=== PATIENT | female | born 1935 | race Caucasian/White ===

== ENCOUNTER 2017-10-28 07:04 | Inpatient (IN) ==
[2017-10-28] MEDS ORDERED: Dexamethasone Inj 20 MG/5 ML Vial IV.PUSH ONE (08:09)
[2017-10-28] MEDS ORDERED: Chlorhexidine Gluconate 2% 1 Pack (2 Cloths) TOPICAL SCH (08:15)
[2017-10-28] MEDS ORDERED: Chlorhexidine 4% Topical 120 APPLIC/120 ML Bottle TOPICAL SCH (08:15)
[2017-10-28] MEDS ORDERED: Sodium Chlor 0.9% Inj 40 ML, Bupivacaine Liposo PF 1.3% Inj 20 ML P-ARTICULR SCH ×2 (08:15)
[2017-10-28] MEDS ORDERED: Metoprolol Tartrate 25 MG Tablet PO SCH (08:15)
[2017-10-28] MEDS ORDERED: Vancomycin Inj 1,000 MG in Sodium Chlor 0.9% Inj 250 ML IV.SIG SCH (09:00)
[2017-10-28] MEDS ORDERED: ceFAZolin Inj 2,000 MG in Sodium Chlor 0.9% Inj 100 ML IV.SIG SCH ×4 (09:00)
[2017-10-28] MEDS ORDERED: Sodium Chlor 0.9% Inj 500 ML IV.SIG SCH (09:00)
[2017-10-28] MEDS ORDERED: fentaNYL Citrate Inj 250 MCG/5 ML Ampul ONE (09:08)
[2017-10-28] MEDS ORDERED: fentaNYL Citrate Inj 100 MCG/2 ML Ampul ONE (09:08)
[2017-10-28] MEDS ORDERED: HYDROmorphone PF Inj 2 MG/ML Vial ONE (09:08)
[2017-10-28] MEDS ORDERED: Famotidine PF Inj 20 MG/2 ML Vial ONE (09:09)
[2017-10-28] MEDS ORDERED: ceFAZolin 2 GM Premix Inj 2 GM/100 ML BAG IV.SIG ONE (09:22)
[2017-10-28] MEDS ORDERED: SODIUM CHLOR 0.9% IV.SIG SCH (10:30)
[2017-10-28] MEDS ORDERED: TRANEXAMIC ACID IV.SIG SCH (10:30)
[2017-10-28] MEDS ORDERED: Post-op Orders (for Pharmacy) OTHER STA (11:37)
[2017-10-28] MEDS ORDERED: Morphine Inj 4 MG/ML Vial IV.PUSH PRN (11:37)
[2017-10-28] MEDS ORDERED: Aluminum/Magnesium/Simethacone Susp 30 ML UDC PO PRN (11:37)
[2017-10-28] MEDS ORDERED: Bisacodyl 10 MG Supp RECTAL PRN (11:37)
[2017-10-28] MEDS ORDERED: Temazepam 15 MG Capsule PO PRN (11:37)
[2017-10-28] MEDS ORDERED: oxyCODONE/Acetaminophen 10/325 Tablet PO PRN (11:37)
--- NOTE | 2017-10-28 11:42 | P.OP ---
- Preoperative Diagnosis (1) Osteoarthritis of left hip - Postoperative Diagnosis (1) Osteoarthritis of left hip Date of procedure: 10/28/17 Procedure: Left total hip arthroplasty Anesthesia: GETA Surgeon: Regis Ford MD Adjunct Instructor: MCKENZIE Madden The surgical procedure was assisted by my Advanced Registered Nurse Practitioner. My INFANT NANNY presence was necessary throughout this case for the manipulation and positioning of the surgical extremity. My INFANT NANNY was assisting me throughout the duration of this procedure. The skill set of an Advance Registered Nurse Practitioner was medically necessary to complete this procedure. During the surgical case, the surgical instrument repair specialist was working at the back table and the Advance Registered Nurse Practitioner was directly assisting me. Operation and Findings: IMPLANT DESCRIPTION: 1. [place] Gription Cup, acetabular size 50. 2. [place] AltrX polyethylene, neutral. 4. [place] femoral stem size 12, no collar, standard offset. 5. Femoral head/neck metal, 32, +1. ESTIMATED BLOOD LOSS: 150 cc. JUSTIFICATION FOR PROCEDURE: The patient has end-stage osteoarthritis to the hip. There is an attached conservative measures pathway form in the chart that describes the nonoperative measures that were undertaken prior to consideration of surgical management. The patient understood the risks and benefits of surgical management. See my office notes for further details. PROCEDURE: The patient was brought back to the operative theatre. Adequate anesthesia was obtained. The patient received intravenous vancomycin and Ancef. The patient was carefully placed on the operative table. The lower extremity was prepped and draped in the usual sterile fashion. Fluoroscopic images were obtained. We made a standard anterior incision over the hip. We dissected through the TFL fascia, exposing the anterior capsule. Arthrotomy was performed in a T-shaped fashion. The capsule was tagged with a #2 FiberWire. End-stage arthritis was identified. Osteotomy was performed through the femoral neck exposing the acetabulum. Remnants of the labrum were resected and osteophytes were removed. We sequentially reamed the acetabulum. We trialed the hip and placed the final cup into position. This was done under fluoroscopic guidance to obtain the appropriate inclination and anteversion. A manhole cover was placed into the acetabular component. We then placed the final polyethylene into position and confirmed that it was well seated. Capsular attachments on the calcar and the inner aspect of the greater trochanter were resected. On the proximal aspect of the femur we used a rongeur , box osteotome, canal finder, sequential broaches and lateralizing rasp. We calcar planed the proximal femur. Then thoroughly irrigated the wound. We trialed the hip with the appropriate size stem. We placed the final stem in to position and trialed again. The hip was stable while it was externally rotated 70 degrees when the leg was lowered to the floor. The final head was applied, and final fluoroscopic images were obtained. The wound was thoroughly irrigated again. Interarticular injection of liposomal bupivacaine was given. The capsule was closed with #2 FiberWire and #1 Vicryl. The deep fascia was closed with a #2 Stratafix, followed by 2-0 Vicryl in the skin and Dermabond dressing. Postop plan is to weight-bear as tolerated. DVT prophylaxis will be performed with SCDs, CARLOZ koch, early mobilization, and Lovenox followed by aspirin.
[2017-10-28] MEDS: Sod Chloride 0.9% Inj 1,000 ML IV.CONT SCH (12:10)
[2017-10-28] MEDS ORDERED: SODIUM CHLOR 0.9% IV.SIG ONE (12:30)
[2017-10-28] MEDS ORDERED: TRANEXAMIC ACID IV.SIG ONE (12:30)
[2017-10-28] MEDS ORDERED: *morphine SULFATE 4 MG/ML PERIprocedure ONLY ONE ×2 (12:51→14:26)
[2017-10-28] MEDS ORDERED: Phenylephrine/NS 1000 MCG/10ML Syringe IV.PUSH ONE (13:01)
[2017-10-28] MEDS ORDERED: Glycopyrrolate Inj 1 MG/5 ML Syringe IV.PUSH ONE (13:01)
[2017-10-28] MEDS ORDERED: Neostigmine Inj 5 MG/5 ML Syringe IV.PUSH ONE (13:01)
[2017-10-28] MEDS ORDERED: Lidocaine PF 1% Inj 5 ML Syringe INFILTRATN ONE (13:01)
--- NOTE | 2017-10-28 13:08 | XR ---
EXAM DATE: 10/28/2017 12:56 PM EDT AGE/SEX: 82 years / Female INDICATIONS: Post-op left total hip arthroplasty. CLINICAL DATA: This is the patient's initial encounter. Patient reports that signs and symptoms have been present for 1 day and indicates a pain score of 0/10. MEDICAL/SURGICAL HISTORY: Carcinoma, breast. Carcinoma, colon. Appendectomy. Left breast lumpe ctomy. Bowel resection. Right total hip arthroplasty. COMPARISON: [facility], HIP RIGHT (AP&LAT 2/3VWS) WO AP PELVIS, 08/11/2012. . FINDINGS: Bilateral total hip arthroplasties are noted satisfactory in appearance. There is subcutaneous air ab out the left hip from surgery. The bone density is normal. No fractures are seen. CONCLUSION: Postoperative changes. Electronically signed by: Osiel Headley MD 10/28/2017 1:07 PM EDT
--- NOTE | 2017-10-28 14:49 | XR ---
EXAM DATE: 10/28/2017 2:12 PM EDT AGE/SEX: 82 years / Female INDICATIONS: Left total hip arthroplasty. CLINICAL DATA: This is the patient's initial encounter. Patient reports that signs and symptoms have been present for 1 day and indicates a pain score of Nonresponsive. MEDICAL/SURGICAL HISTORY: Non-responsive. Non-responsive. COMPARISON: No prior exams available for comparison. FINDINGS: 2 spot intraoperative fluoroscopic views of the left hip demonstrate a total hip arthroplasty in plac e. CONCLUSION: Postop left hip arthroplasty. Electronically signed by: Osiel Headley MD 10/28/2017 2:48 PM EDT
--- NOTE | 2017-10-28 15:23 | P.DCO ---
- Physical Therapy Physical Therapy: Gait training, Transfer training, bed to chair Hip: Total hip Left Lower Extremity Weight Bearing: Weight bearing as tolerated Left Lower Extremity Range of Motion: Active ROM - Nursing Nursing: Irma carrasco Dressing changes: Do not change dressing Additional instructions: First dressing change in the office - Certification Need for Home Health services: I have seen patient Indu Matamoros on 10/28/17. My clinical findings support the need for the requested home health care services because: Need for Home Health Services: Limited ability to care for self, High risk of falls Homebound Certification: I certify that my clinical findings support that this patient is homebound because: Homebound Certification: Post-op weakness, Unsteady gait/balance
[2017-10-28] MEDS: Temazepam 15 MG Capsule PO SCH (22:53)
[2017-10-28] MEDS: Senna/Docusate Sodium 8.6/50 MG Tablet PO SCH (22:53)
[2017-10-28] MEDS: Metoclopramide 10 MG Tablet PO SCH (22:53)
[2017-10-28] MEDS: Multivitamin/Minerals Therapeutic Tablet PO SCH (22:53)
[2017-10-29] MEDS: oxyCODONE/Acetaminophen 10/325 Tablet PO PRN ×2 (03:10→23:20)
[2017-10-29] MEDS: Sod Chloride 0.9% Inj 1,000 ML IV.CONT SCH ×2 (03:11→15:46)
[2017-10-29 06:05] LABS: Hematocrit 38.7 % (35.0-46.0); Hemoglobin 12.7 gm/dL (11.6-15.3)
--- NOTE | 2017-10-29 07:10 | P.PNOP ---
Subjective Interval history: The patient is resting comfortably in bed in no acute distress. The patient reports minimal pain to the left hip. Physical Exam Vital signs: Vital Signs 10/28/17 08:00 10/28/17 12:03 10/28/17 12:15 Temperature 98.5 F 97.6 F Pulse Rate 80 91 H 76 Respiratory Rate 16 12 19 Blood Pressure 143/82 H 100/53 L 101/58 L Pulse Oximetry 96 96 97 10/28/17 12:30 10/28/17 12:45 10/28/17 13:00 Temperature 97.4 F L Pulse Rate 74 71 74 Respiratory Rate 17 19 14 Blood Pressure 122/61 136/60 135/61 Pulse Oximetry 97 98 97 10/28/17 13:30 10/28/17 14:00 10/28/17 15:00 Temperature Pulse Rate 75 78 78 Respiratory Rate 14 14 15 Blood Pressure 139/58 L 117/59 L 117/56 L Pulse Oximetry 97 94 L 96 10/28/17 15:45 10/28/17 16:00 10/28/17 17:09 Temperature 97.6 F 97.3 F L Pulse Rate 79 84 Respiratory Rate 13 16 15 Blood Pressure 131/70 143/81 H Pulse Oximetry 97 96 10/28/17 20:00 10/29/17 00:00 10/29/17 04:00 Temperature 97.2 F L 97.8 F 97.5 F L Pulse Rate 93 H 89 85 Respiratory Rate 18 18 18 Blood Pressure 153/75 H 139/70 143/73 H Pulse Oximetry 93 L 95 93 L Intake & Output 10/28/17 10/29/17 10/29/17 18:59 06:59 18:59 Intake Total 4526.86 / 4526.86 1200 / 1200 Output Total 300 / 300 Balance 4226.86 / 4226.86 1200 / 1200 Weight 84.3 kg 84.3 kg Intake: IV 686.86 / 686.86 1200 / 1200 NS Inj 1,000 ML @ 80 mls/hr IV. 1000 / 1000 CONT .[id number] [facility] Rx#:[id number] Cyklokapron Inj 843 MG In NS 216.86 / 216.86 Inj 100 ML @ 200 mls/hr IV.SIG ONCE ONE Rx#:[id number] Vancomycin Inj 1,000 MG In NS 250 / 250 Inj 250 ML @ 250 mls/hr IV.SIG [facility] Rx#:[id number] Ancef Inj 1,000 MG In NS Inj 100 / 100 200 / 200 100 ML @ 200 mls/hr IV.SIG Q6H [facility] Rx#:[id number] Ancef Inj 2,000 MG In NS Inj 120 / 120 100 ML @ 240 mls/hr IV.SIG [employer] [facility] Rx#:[id number] Oral 240 / 240 Anesthesia Amount 3600 / 3600 Output: Estimated Blood Loss 300 / 300 Other: # Voids 2 Date of Last Bowel Movement 10/27/17 10/27/17 Weight On Admission 84.3 kg Narrative: The patient's dressing is clean, dry, and intact. EHL/TA/G are intact. 2+ pedal pulse. The patient's calf is soft and nontender. Sensation is intact to light touch distally. Mild ecchymosis to left hip. Results - Labs CBC & Chem 7: 10/29/17 04:32 Laboratory Results - last 24 hr 10/28/17 10/29/17 09:05 04:32 Hgb 12.7 Hct 38.7 Blood Type O Positive Antibody Screen Negative - Imaging Impressions Hip X-Ray 10/28/17 00:00 CONCLUSION: Postop left hip arthroplasty. Hip X-Ray 10/28/17 11:40 CONCLUSION: Postoperative changes. - Procedures Left total hip arthroplasty Assessment and Plan - Problem List (1) Status post total hip replacement, left Code(s): Z96.642 - Presence of left artificial hip joint Status: Acute (2) Osteoarthritis of left hip Code(s): M16.12 - Unilateral primary osteoarthritis, left hip Status: Acute - Assessment and Plan POD #1: Left total hip arthroplasty 1. Weightbearing as tolerated on left lower extremity. 2. Lovenox followed by aspirin for DVT prophylaxis. 3. Ice as needed for swelling. 4. Stable per ortho for discharge to home health today or Thursday. 5. The patient will follow up with Dr. Ford and/or MCKENZIE Moran as previously scheduled.
[2017-10-29] MEDS ORDERED: Dexamethasone Inj 20 MG/5 ML Vial IV.PUSH ONE (08:00)
[2017-10-29] MEDS: Metoclopramide 10 MG Tablet PO SCH ×2 (10:07→21:20)
[2017-10-29] MEDS: Senna/Docusate Sodium 8.6/50 MG Tablet PO SCH ×2 (10:07→21:20)
[2017-10-29] MEDS: Multivitamin/Minerals Therapeutic Tablet PO SCH ×2 (10:07→21:21)
[2017-10-29] MEDS: Pantoprazole Sodium 20 MG DR Tablet PO SCH (10:07)
[2017-10-29] MEDS: Enoxaparin Inj 40 MG/0.4 ML Syringe SQ SCH (11:21)
--- NOTE | 2017-10-29 13:41 | P.DIET ---
Nutritional Evaluation Type of nutrition evaluation: initial (Abril Screen) Assessment Assessment: Geriatric screen received on pt who had elective surgery w/ age >80. Pt is at 150% of his IBW. Not at high nutritional risk. Consult RD if needed.
[2017-10-29] MEDS: Temazepam 15 MG Capsule PO SCH (23:20)
[2017-10-30] MEDS: Sod Chloride 0.9% Inj 1,000 ML IV.CONT SCH (04:28)
[2017-10-30 06:36] LABS: Hematocrit 33.3 % (35.0-46.0)
[2017-10-30] MEDS: oxyCODONE/Acetaminophen 10/325 Tablet PO PRN ×2 (08:01→12:08)
[2017-10-30] MEDS: Metoclopramide 10 MG Tablet PO SCH (08:02)
[2017-10-30] MEDS: Pantoprazole Sodium 20 MG DR Tablet PO SCH (08:02)
[2017-10-30] MEDS: Multivitamin/Minerals Therapeutic Tablet PO SCH (08:02)
[2017-10-30] MEDS: Senna/Docusate Sodium 8.6/50 MG Tablet PO SCH (08:03)
--- NOTE | 2017-10-30 09:10 | P.PNOP ---
Subjective Interval history: ready to go home. pain controlled Physical Exam Vital signs: Vital Signs 10/29/17 11:52 10/29/17 16:00 10/29/17 20:00 Temperature 98.1 F 98.0 F 99.0 F Pulse Rate 78 76 79 Respiratory Rate 18 18 18 Blood Pressure 132/66 131/66 121/57 L Pulse Oximetry 92 L 94 L 93 L 10/30/17 00:00 10/30/17 04:00 10/30/17 08:00 Temperature 98.7 F 98.3 F 97.9 F Pulse Rate 82 80 73 Respiratory Rate 17 15 18 Blood Pressure 136/65 128/66 117/58 L Pulse Oximetry 92 L 93 L 95 Intake & Output 10/29/17 10/30/17 10/30/17 18:59 06:59 18:59 Intake Total 2480 / 2480 150 / 150 Output Total Balance 2480 / 2480 149 / 149 Intake: IV 1999 / 1999 NS Inj 1,000 ML @ 80 mls/hr IV. 1000 / 1000 CONT .[id number] [facility] Rx#:[id number] LR 1000 mL Inj 1,000 ML @ 30 1000 / 1000 mls/hr IV.SIG .Q24H [facility] Rx#: [id number] Oral 480 / 480 150 / 150 Output: Urine Other: # Voids 4 Date of Last Bowel Movement 10/28/17 10/28/17 Narrative: The patient's dressing is clean, dry, and intact. Small amount of stable bloody drainage on the dressings (dime size) EHL/TA/G are intact. 2+ pedal pulse. The patient's calf is soft and nontender. Sensation is intact to light touch distally. Mild ecchymosis to left hip. Results - Labs CBC & Chem 7: 10/30/17 05:40 Laboratory Results - last 24 hr 10/30/17 05:40 Hgb 11.0 L Hct 33.3 L - Procedures Left total hip arthroplasty Assessment and Plan - Problem List (1) Status post total hip replacement, left Code(s): Z96.642 - Presence of left artificial hip joint Status: Acute (2) Osteoarthritis of left hip Code(s): M16.12 - Unilateral primary osteoarthritis, left hip Status: Acute - Assessment and Plan POD #2: Left total hip arthroplasty 1. Weightbearing as tolerated on left lower extremity. 2. Lovenox followed by aspirin for DVT prophylaxis. (patient has rx for pain meds and blood thinners at home) 3. Ice as needed for swelling. 4. Stable per ortho for discharge to home health today. 5. The patient will follow up with Dr. Ford and/or MCKENZIE Moran as previously scheduled.
[2017-10-30] MEDS: Enoxaparin Inj 40 MG/0.4 ML Syringe SQ SCH (12:08)
--- NOTE | 2017-11-02 12:34 | P.DS ---
Date of admission: 10/28/17 07:04 Primary care physician: Leoncio Delgado MD Attending physician on discharge: Regis Ford Anticipated date of discharge: 10/30/17 Brief History from admission: The patient was admitted to the hospital for severe osteoarthritis of the left hip to have a left total hip arthroplasty. DS: Diagnosis - Discharge Diagnosis (1) Status post total hip replacement, left Status: Acute (2) Osteoarthritis of left hip Status: Acute DS: Summary Hospital Course: The patient was admitted to the hospital for severe osteoarthritis of the left hip to have a left total hip arthroplasty. The patient's surgery went well with no complication. The patient is on a [regular] diet. The patient's DVT prophylaxis includes use of [Lovenox followed by aspirin]. The patient is weightbearing as tolerated. The patient was discharged [home with home health] and will follow up in the office with Dr. Ford and/or MCKENZIE Moran as previously scheduled. - Time Spent with Patient Total time spent providing and/or coordinating discharge services: Greater than 30 minutes - Quality: VTE Deep Vein Thrombosis/Pulmonary Embolism Present on Admission: No Exam Narrative: See last progress note for physical exam. Results Procedures completed during hospitalization: Left total hip arthroplasty - Impressions ITS Impressions Hip X-Ray 10/28/17 11:40 CONCLUSION: Postoperative changes. Discharge Plan - Discharge Disposition Patient Disposition: W/Home Health Service - Discharge Condition Condition: Stable - Discharge Order Discharge Orders: Discharge Order (Routine); Ordered 10/28/17 Ordered By: David Barragan - Discharge Details Anticipated Discharge Date: 10/29/17 - Physicians Team Primary Care Provider: Leoncio Delgado Attending Provider: Regis Ford Other Providers: [facility],Agency - Rxs /Orders / Referrals /Forms Prescriptions: Continue oxybutynin chloride 5 mg Tablet 5 mg PO BID Prilosec OTC 1 tab PO DAILY Reglan 1 tab PO BID temazepam [Restoril] 15 mg Capsule 15 mg PO HS Discontinued Aleve 2 tab PO BID hydrocodone-acetaminophen [Chase] 5-325 mg Tablet 1 tab PO TID PRN (Reason: Pain) Ambulatory Orders / Order Sets / DME: Adjustable Commode 3-in-1 (1 each) (Routine) Location: Determined by Patient Ordered By: David Barragan Walker With Front Wheels (1 each) (Routine) Location: Determined by Patient Ordered By: David Barragan Referrals: Regis Ford MD [Physician] - See Instructions (F/U in the office with Dr. Ford or MCKENZIE Moran as previously scheduled.) Leoncio Delgado MD [Primary Care Provider] - See Instructions - Discharge Instructions Patient Printed Instructions: Constipation (DC), How to Choose and Use a Walker (GEN), CARLOZ Hose (DC), Total Hip Replacement (DC), Pain Management After Surgery (DC) Additional Instructions: PLEASE TAKE ALL MEDICATIONS DIRECTED BY YOUR DOCTOR. PLEASE FOLLOW UP WITH YOUR DOCTOR PREVIOUSLY SCHEDULED. IF YOU HAVE ANY SIGNS AND SYMPTOMS OF INFECTION, PLEASE CALL YOUR DOCTOR AND REPORT BACK TO [facility]. IT HAS BEEN OUR PLEASURE TO TAKE CARE OF YOU HERE ON 6N. WISHING YOU WELL ON YOUR RECOVERY. - Post Discharge Care Plan Care Plan Goals: Your Health Problems: Goals to Promote Your Health: * To prevent worsening of your condition * To maintain your health at the optimal level Directions to Meet Your Goals: * Take your medications as prescribed * Follow your dietary instruction * Follow activity as directed * Keep your appointments as scheduled * Take your immunizations and boosters as scheduled * If your symptoms worsen call your PCP * If no PCP go to Urgent Care or Emergency Room Smoking is dangerous to your health. Avoid second hand smoke. You may reach the 24-hour crisis hotline for domestic abuse at .
== END 2017-10-30 13:02 | disposition home health service (06) ==
LOC: HSDI 07:04 → N06 16:05
PROVIDERS: ADMIT Orthopaedic Surgery; ATTEND Orthopaedic Surgery